=== PATIENT | female | born 1980 | race Caucasian/White ===

== ENCOUNTER → 2016-08-02 | Outpatient (CLI) | payer BC ==
[~2016-08-02] MED LIST: OMEP20CA12 PO; RANI150T15 PO
--- NOTE | 2016-08-02 15:37 | Diagnostic Imaging Report ---
INDICATION: Left hip pain. TECHNIQUE: AP and oblique views of the left hip were obtained. FINDINGS: No fracture or acute bony abnormality is seen. IMPRESSION: Negative left hip. Dictated by: Dictated on workstation # [id number]
== END ==
LOC: RAD 14:49
PROVIDERS: ATTEND Physician Assistant
DX: M25.552 Pain in left hip (principal)
CPT/HCPCS: 73502